=== PATIENT | female | born 1980 | race Caucasian/White ===

== ENCOUNTER 2017-09-13 09:03 | Inpatient (IN) | payer MEDICAID, OTHER ==
[2017-09-13] MEDS ORDERED: PEPCID IV NR (09:40)
[2017-09-13] MEDS ORDERED: BICITRA PO NR (09:40)
[2017-09-13] MEDS ORDERED: REGLAN IV NR (09:40)
[2017-09-13] MEDS ORDERED: LACTATED RINGERS 1,000 ML IV SCH ×2 (10:00→13:00)
[2017-09-13] MEDS ORDERED: PITOCin/NS 20 UNIT/1000ML DRIP 20 UNITS/1,000 ML BAG IV SCH ×3 (10:00→14:00)
[2017-09-13] MEDS ORDERED: ANCEF/STERILE WATER 2 GM/20 ML 2 GM/20 ML SYRINGE IV NR (10:00)
[2017-09-13 10:25] LABS: Basophils # (Auto) 0.1 K/mm3 (0.0-0.1); Basophils % (Auto) 0.6 % (0.0-1.8); Eosinophils # (Auto) 0.1 K/mm3 (0.0-0.4); Eosinophils % (Auto) 1.1 % (0.0-4.3); Hematocrit 37.7 % (30.3-42.9); Hemoglobin 12.5 gm/dl (10.1-14.3); Lymphocytes # (Auto) 1.3 K/mm3 (1.2-5.4); Lymphocytes % (Auto) 15.4 % (13.4-35.0); Mean Corpuscular HGB Conc 33 % (30-34); Mean Corpuscular Hemoglobin 27 pg (28-32); Mean Corpuscular Volume 81 fl (79-97); Monocytes # (Auto) 0.7 K/mm3 (0.0-0.8); Monocytes % (Auto) 8.1 % (0.0-7.3); Platelet Count 327 K/mm3 (140-440); Red Blood Count 4.65 M/mm3 (3.65-5.03); Red Cell Distribution Width 15.9 % (13.2-15.2)
[2017-09-13] MEDS ORDERED: HEMABATE IM ONE (11:34)
[2017-09-13] MEDS ORDERED: METHERGINE IM ONE (11:34)
[2017-09-13] MEDS ORDERED: PHENERGAN PR PRN (11:38)
[2017-09-13] MEDS ORDERED: DILAUDID IV PRN (11:38)
[2017-09-13] MEDS ORDERED: ZOFRAN IV PRN ×2 (11:38→13:34)
[2017-09-13] MEDS ORDERED: PHENERGAN PO PRN (11:38)
[2017-09-13] MEDS ORDERED: NARCAN 0.4 MG/1 ML IV PRN ×2 (11:38→13:34)
--- NOTE | 2017-09-13 11:38 | Anesthesia Consultation ---
Anesthesia Consult and Med Hx Date of service: 09/13/17 - Airway Anesthetic Teeth Evaluation: Good ROM Head & Neck: Adequate Mental/Hyoid Distance: Adequate Mallampati Class: Class II Intubation Access Assessment: Probably Good - Pre-Operative Health Status ASA Pre-Surgery Classification: ASA2 Proposed Anesthetic Plan: Epidural, Spinal - Pulmonary Hx Smoking: No Hx Asthma: No COPD: No Hx Pneumonia: No - Cardiovascular System Hx Hypertension: No - Central Nervous System Hx Seizures: No Hx Psychiatric Problems: No - Endocrine Hx Renal Disease: No Hx End Stage Renal Disease: No Hx Hypothyroidism: No Hx Hyperthyroidism: No - Hematic Hx Anemia: No Hx Sickle Cell Disease: No - Other Systems Hx Alcohol Use: No
--- NOTE | 2017-09-13 11:38 | Anesthesia Day of Surgery ---
Anesthesia Day of Surgery - Day of Surgery Patient Examined: Yes Patient H&P Reviewed: Yes Patient is NPO: Yes
[2017-09-13] MEDS ORDERED: SODIUM CHLORIDE FLUSH SYRINGE 10 ML IV NR ×2 (12:00→14:00)
[2017-09-13] MEDS ORDERED: BICITRA PO ONE (12:08)
[2017-09-13] MEDS ORDERED: PEPCID IV ONE (12:08)
[2017-09-13] MEDS ORDERED: REGLAN IV ONE (12:08)
--- NOTE | 2017-09-13 12:16 | History and Physical Report ---
History of Present Illness Date of examination: 09/13/17 Date of admission: 09/13/17 09:03 Chief complaint: SIUP at 39 weeks and 3 days not in labor. For repeat C/section. History of present illness: Patient is a 37 year old , LMP 12/07/16, EDC 09/17/17 at 39 weeks and 3 days who is admitted for elective repeat C/section. She is having mild contractions, but denies any fluid leakage or bleeding. She reports good movement. 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: abnormal PAP smear Family/Genetic History: none Social history: no significant social history - Obstetrical History Expected Date of Delivery: 09/17/17 Actual Gestation: 39 Week(s) 3 Day(s) : 4 Para: 2 Spontaneous Abortions: 1 Number of Living Children: 2 Medications and Allergies Allergies Allergy/AdvReac Type Severity Reaction Status Date / Time No Known Allergies Allergy Verified 03/15/14 11:32 Home Medications Medication Instructions Recorded Confirmed Last Taken Type HYDROcodone/ACETAMINOPHEN 1 each PO Q6H PRN #10 tablet 03/15/14 Unknown Rx [Hydrocodon-Acetaminophen 5-325] Ibuprofen [Motrin 800 MG tab] 800 mg PO TID PRN #60 tablet 03/15/14 Unknown Rx Active Meds: Active Medications Citric Acid/Sodium Citrate (Bicitra) 30 ml PO ONCE ONE Stop: 09/13/17 12:09 Famotidine (Pepcid) 20 mg IV ONCE ONE Stop: 09/13/17 12:09 Hydromorphone HCl (Dilaudid) 0.5 mg IV Q4H PRN PRN Reason: breakthrough pain > 7/10 Lactated Ringer's (Lactated Ringers) 1,000 mls @ 2,250 mls/hr IV PREOP REN Stop: 09/14/17 10:27 Oxytocin/Sodium Chloride (Pitocin/Ns 20 Unit/1000ml Drip) 20 units in 1,000 mls @ 0 mls/hr IV TITR REN Lactated Ringer's (Lactated Ringers) 1,000 mls @ 2,250 mls/hr IV PREOP REN Stop: 09/14/17 13:27 Oxytocin/Sodium Chloride (Pitocin/Ns 20 Unit/1000ml Drip) 20 units in 1,000 mls @ 0 mls/hr IV TITR REN Ketorolac Tromethamine (Toradol) 30 mg IV Q6H PRN PRN Reason: Pain, Moderate (4-6) Stop: 09/18/17 11:38 Metoclopramide HCl (Reglan) 10 mg IV ONCE ONE Stop: 09/13/17 12:09 Naloxone HCl (Narcan 0.4 Mg/1 Ml) 0.2 mg IV Q2MIN PRN PRN Reason: Res Rate </= 8 or 02 SAT < 92% Ondansetron HCl (Zofran) 4 mg IV Q8H PRN PRN Reason: Nausea And Vomiting Promethazine HCl (Phenergan) 25 mg PO Q6H PRN PRN Reason: Nausea And Vomiting Promethazine HCl (Phenergan) 25 mg WV Q6H PRN PRN Reason: Nausea And Vomiting Sodium Chloride (Sodium Chloride Flush Syringe 10 Ml) 10 ml IV PRN NR Stop: 09/13/17 23:59 - Physical Exam Cardiovascular: Normal S1, Normal S2 Lungs: Positive: Clear to auscultation Vulva: both: normal Uterus: Positive: enlarged Adnexa: both: normal Deep Tendon Reflex Grade: Normal +2 - Obstetrical FHR: category 1 Uterine Contraction Monitor Mode: External Cervical Dilatation: 1 Cervical Effacement Percentage: 50 station: -3 Uterine Contraction Pattern: Irregular Uterine Contraction Intensity: Mild Results Result Diagrams: 09/13/17 09:30 Abnormal lab results 09/13/17 Range/Units 09:30 MCH 27 L (28-32) pg RDW 15.9 H (13.2-15.2) % Pershing % (Auto) 8.1 H (0.0-7.3) % Seg Neutrophils % 74.8 H (40.0-70.0) % All other labs normal. Assessment and Plan - Patient Problems (1) 39 weeks gestation of Current Visit: Yes Status: Acute Plan to address problem: Admit to labor floor. Routine admitting labs. IV fluid. Pt is for repeat C/section. Risks, benefits of the procedure were discussed in detail with the patient which included but not limited to the risks of infection , hemorrhage requiring blood transfusion, injury to the bowel, bladder and blood vessels. She expressed understanding, her questions werev answered, she gave her informed consent. (2) Previous section Current Visit: Yes Status: Acute (3) Advanced maternal age in Current Visit: Yes Status: Acute
[2017-09-13] MEDS ORDERED: NACL 0.9% IR ONE (12:20)
[2017-09-13] MEDS ORDERED: WATER FOR IRRIG STERILE IR ONE (12:20)
[2017-09-13] MEDS ORDERED: ZOFRAN ONE (12:55)
[2017-09-13] MEDS ORDERED: NEO SYNEPHRINE/NS Syringe(OR USE) IV ONE (12:55)
[2017-09-13] MEDS ORDERED: ASTRAMORPH PF 10MG/10ML ONE (13:23)
[2017-09-13] MEDS ORDERED: NACL 0.9% 1000 ML 1,000 ML ONE (13:26)
[2017-09-13] MEDS ORDERED: SENOKOT PO PRN (13:34)
[2017-09-13] MEDS ORDERED: LANSINOH TP PRN (13:34)
[2017-09-13] MEDS ORDERED: MILK OF MAGNESIA PO PRN (13:34)
[2017-09-13] MEDS ORDERED: TUCKS PAD TP PRN (13:34)
[2017-09-13] MEDS ORDERED: MOTRIN PO PRN (13:34)
[2017-09-13] MEDS ORDERED: TORADOL IV PRN ×2 (13:34)
[2017-09-13] MEDS ORDERED: MYLICON PO PRN (13:34)
[2017-09-13] MEDS ORDERED: TYLENOL PO PRN (13:34)
[2017-09-13] MEDS ORDERED: MORPHINE IV PRN (13:34)
--- NOTE | 2017-09-13 13:58 | Operative Report ---
Operative Report Operative Report: Pre-operative diagnosis: 1. SIUP at 39 weeks and 3 days gestation not in labor. 2. Previous section. Postoperative diagnosis: 1. Same as preoperative diagnosis. 2. Dense adhesion of the peritoneum to the anterior fascia and bladder. Procedure: 1. Repeat low-transverse section. 2. Lysis of adhesions. Surgeon: Dr. Adams Tuber Helper: none Anesthesia: Epidural IVF: 2 liters of RL EBL: 800 cc Urine: 150 cc clear Complications: none Operative findings: 1. A female found in an ANASTASIA position, delivered at 12:44 PM, Apgars 8 at 1 minute and 9 at 5 minutes, weight 7 lbs. 6 oz. 2. Adhesions of the peritoneum to the anterior fascia and bladder. 3. Normal fallopian tubes and ovaries bilaterally. Procedure details: The risks, benefits, and alternatives of the procedure were discussed in detail with the patient which included but not limited to the risk of infection, hemorrhage requiring blood transfusion, injury to the bowel bladder and blood vessels. The patient expressed understanding, her questions were answered, and she gave informed consent. The patient was taken to the operating room with an IV fluids infusing Ringer's lactate. In the operating room, she was placed in a sitting position and given epidural anesthesia. Then, she was placed in the dorsal supine position with a leftward tilt. A Llanos catheter and Venodyne boots were placed. The abdomen was washed and she was prepared and draped in the usual sterile fashion. After confirming adequate epidural anesthesia, a Pfannenstiel skin incision was made in the lower abdomen and the level of the previous scar using the scalpel. This incision was carried down to the underlying fascia using the Bovie. The fascia was opened bilaterally in the curvilinear fashion using the Bovie. 2 straight Kocker clamps were used to grasp the upper edge of the fascia to dissect the underlying rectus abdominis muscle. A similar procedure was done with general edge of the fascia to dissect the underlying rectus abdominis muscle. The muscle was bluntly from the midline by pulling. The parietal peritoneum was grasped with 2 hemostat clamps and entered sharply using Metzenbaum seizures. A quick survey of the anatomy revealed dense adhesions of the peritoneum to the anterior fascia and the bladder. Lysis of adhesions was done. A bladder flap was created. Denys'O retractor was placed on the incision for proper visualization. A low transverse incision was made in the lower uterine segment using the scalpel and extended bilaterally in a curvilinear fashion using bandage scissors. The amniotic sac was ruptured, there was copious amount of clear amniotic fluid. The infant was found in an ANASTASIA position. The head was delivered atraumatically followed by the delivery of the shoulders and rest of the body at 12:44 PM. The was a female. The cord was clamped 2 and cut and the was handed off to the awaiting accounting manager controller. Apgars were 8 at 1 minute and 9 at 5 minutes and weight was 7 pounds and 6 ounces. Cord blood was collected. The placenta was delivered manually and it was complete with a three-vessel cord. The uterine cavity was cleaned of clots and debris using dry lap sponges. The uterine incision was repaired in a running locked fashion using 0 Vicryl sutures. A second layer of imbrication was placed. The gutters were cleaned of clots and debris using dry lap sponges. After confirming adequate hemostasis, the instruments were removed from the abdominal cavity. The fascia was closed in a running fashion using 0 Vicryl sutures. The skin was closed with shirley. Sterile dressing was placed The counts of laps, needles, sponges, and instruments were correct 2. The patient tolerated the procedure, she was taken to the recovery room in a stable condition.
[2017-09-13] MEDS: TORADOL IV PRN (14:36)
[2017-09-14 00:44] LABS: Hematocrit 34.1 % (30.3-42.9)
[2017-09-14] MEDS: TORADOL IV PRN (04:10)
[2017-09-14] MEDS: PERCOCET 5/325 PO PRN (04:13)
[2017-09-14] MEDS ORDERED: FEOSOL PO SCH (10:00)
--- NOTE | 2017-09-14 13:56 | Progress Note ---
Assessment and Plan - Patient Problems (1) S/P repeat low transverse Current Visit: Yes Status: Acute Plan to address problem: POD 2 - stable Continue routine postop orders Discharge to home 09/15/17 Subjective - Subjective Date of service: 09/14/17 Principal diagnosis: s/p repeat LTCS Patient reports: appetite normal, voiding normally, pain well controlled, ambulating normally, no dizzy ambulation, no flatus, no bowel movement : doing well, other (breast and bottle feeding) Objective - Vital Signs Latest vital signs: Vital Signs Temp Pulse Resp BP BP Pulse Ox 09/14/17 07:50 98.5 F 86 18 120/70 98 09/14/17 05:00 98.2 F 83 18 115/67 98 09/13/17 23:50 98.1 F 95 H 18 102/62 98 09/13/17 20:25 98.1 F 79 18 130/73 97 09/13/17 15:05 97.6 F 58 L 18 112/62 98 09/13/17 14:50 98.6 F 09/13/17 14:45 60 16 113/63 100 09/13/17 14:40 57 L 17 111/63 99 09/13/17 14:35 59 L 16 115/67 100 09/13/17 14:30 62 17 111/68 100 09/13/17 14:25 64 19 114/64 99 09/13/17 14:20 56 L 17 119/61 100 09/13/17 14:15 59 L 18 110/63 100 09/13/17 14:10 57 L 17 110/64 100 09/13/17 14:05 59 L 17 110/63 98 09/13/17 14:00 65 18 110/66 98 09/13/17 13:59 64 19 114/60 99 09/13/17 13:53 63 18 111/60 99 Intake and Output 09/13/17 09/14/17 09/14/17 23:59 07:59 15:59 Intake Total 600 360 Output Total 1200 400 Balance -600 -40 Intake: Oral 600 360 Output: Urine 1200 400 Indwelling Catheter 1200 400 Other: Total, Intake Amount 240 240 Total, Output Amount 700 400 - Exam Cardiovascular: Present: Regular rate, Normal S1, Normal S2, No murmurs Lungs: Present: Clear to auscultation, Normal air movement Abdomen: Present: normal appearance, soft Vulva: both: normal Uterus: Present: normal, firm, fundal height below umbilicus Extremities: Present: normal Deep Tendon Reflex Grade: Normal +2 Incision: Present: normal, dry, dressed
--- NOTE | 2017-09-14 14:01 | Discharge Summary ---
Providers - Providers Date of Admission: 09/13/17 09:03 Date of discharge: 09/15/17 Attending physician: JOHN ALEXANDER MD Primary care physician: JOHN ALEXANDER MD Hospitalization Reason for admission: section (scheduled ) Delivery: Procedure: repeat low transverse Episiotomy: none Laceration: none Incision: normal, dry, intact Other procedures: none complications: none Discharge diagnosis: IUP at term delivered [place] baby: female Hospital course: Uncomplicated Condition at discharge: Stable Disposition: DC-01 TO HOME OR SELFCARE - Discharge Diagnoses (1) S/P repeat low transverse Status: Acute Plan - Provider Discharge Summary Activity: routine, no sex for 6 weeks, no heavy lifting 4 weeks, no strenuous exercise Diet: routine Instructions: routine Additional instructions: [] Smoking cessation referral if applicable(refer to patient education folder for contact #) [] Refer to [facility]'s [facility] Booklet Call your doctor immediately for: * Fever > 100.5 * Heavy vaginal bleeding ( >1 pad per hour) * Severe persistent headache * Shortness of breath * Reddened, hot, painful area to leg or breast * Drainage or odor from incision. * Keep incision clean and dry at all times and follow doctor's instructions regarding bathing/showering - Follow up plan Follow up: JOHN ALEXANDER MD [Primary Care Provider] - 7 Days (Follow up at [facility] in 1 week for incision check and shirley removal)
[2017-09-15] MEDS: PERCOCET 5/325 PO PRN (04:33)
[2017-09-15 08:16] VITALS: BP 136/72
== END 2017-09-15 14:00 | disposition home or self-care (01) | DRG 766 ==
LOC: APU 09:03 → OB 15:06
PROVIDERS: ADMIT Obstetrics & Gynecology; ATTEND Obstetrics & Gynecology
PROC: 10D00Z1 Extraction of Products of Conception, Low, Open Approach (ICD-10-PCS; principal; 2017-09-13)
DX: O34.211 Maternal care for low transverse scar from previous cesarean delivery (principal); K66.0 Peritoneal adhesions (postprocedural) (postinfection); O99.62 Diseases of the digestive system complicating childbirth; Z3A.39 39 weeks gestation of pregnancy; Z37.0 Single live birth; Z79.899 Other long term (current) drug therapy
CPT/HCPCS: 36415; 85014; 85018; 85025; 86592; 86850; 86900; 86901; 88307; 99211; G0463; J0690; J1885; J2210; J2274; J2370; J2405; J2590; J2765; J7030; J7120

== ENCOUNTER 2017-09-19 11:45 | Emergency (ER) | payer SELFPAY ==
[2017-09-19] MEDS ORDERED: ASPIRIN PO ONE (12:00)
[2017-09-19 12:12] LABS: Hematocrit 40.7 % (30.3-42.9); Hemoglobin 13.3 gm/dl (10.1-14.3); Mean Corpuscular HGB Conc 33 % (30-34); Mean Corpuscular Hemoglobin 27 pg (28-32); Mean Corpuscular Volume 82 fl (79-97); Red Cell Distribution Width 17.1 % (13.2-15.2)
[2017-09-19 12:13] LABS: Basophils # (Auto) 0.1 K/mm3 (0.0-0.1); Basophils % (Auto) 0.8 % (0.0-1.8); Eosinophils # (Auto) 0.3 K/mm3 (0.0-0.4); Eosinophils % (Auto) 2.5 % (0.0-4.3); Lymphocytes # (Auto) 1.6 K/mm3 (1.2-5.4); Lymphocytes % (Auto) 14.1 % (13.4-35.0); Monocytes # (Auto) 0.8 K/mm3 (0.0-0.8); Monocytes % (Auto) 6.9 % (0.0-7.3); Platelet Count 504 K/mm3 (140-440)
[2017-09-19 12:24] LABS: BUN/Creatinine Ratio 18; Blood Urea Nitrogen 11 mg/dL (7-17); Hemolysis Index 3
--- NOTE | 2017-09-19 13:13 | Emergency Department Report ---
ED Chest Pain HPI - General Chief Complaint: Chest Pain Stated Complaint: CHEST PAIN Time Seen by Provider: 09/19/17 12:52 Source: patient Mode of arrival: Ambulatory Limitations: No Limitations - History of Present Illness Initial Comments: Patient is 37 years old female status post 7 days ago. Patient presented to the ER complaining of sudden onset of left-sided chest pain, sharp in nature associated with shortness of breath. Patient denied any cough or fever recently. MD Complaint: chest pain -: Sudden Onset: during rest Pain Location: left chest Severity: moderate Severity scale (0 -10): 5 Quality: sharp Consistency: constant - Related Data Previous Rx's Medication Instructions Recorded Last Taken Type HYDROcodone/ACETAMINOPHEN 1 each PO Q6H PRN #10 tablet 03/15/14 Unknown Rx [Hydrocodon-Acetaminophen 5-325] Ibuprofen [Motrin 800 MG tab] 800 mg PO TID PRN #60 tablet 03/15/14 Unknown Rx Allergies Allergy/AdvReac Type Severity Reaction Status Date / Time No Known Allergies Allergy Verified 03/15/14 11:32 Heart Score - HEART Score History: Slightly suspicious EKG: Normal Age: < 45 Risk factors: No known risk factors Troponin: < normal limit HEART Score: 0 - Critical Actions Critical Actions: 0-3 pts:0.9-1.7%risk of adverse cardiac event.Candidate for discharge ED Review of Systems ROS: Stated complaint: CHEST PAIN Other details as noted in HPI Comment: All other systems reviewed and negative Constitutional: denies: chills, fever Respiratory: shortness of breath, SOB at rest. denies: cough, wheezing Cardiovascular: chest pain. denies: palpitations, dyspnea on exertion Gastrointestinal: denies: abdominal pain, nausea, vomiting, diarrhea Neurological: denies: headache, weakness, numbness, paresthesias ED Past Medical Hx - Past Medical History Previous Medical History?: No Hx Hypertension: No Hx Congestive Heart Failure: No Hx Diabetes: No Hx Deep Vein Thrombosis: No Hx Renal Disease: No Hx Sickle Cell Disease: No Hx Seizures: No Hx Asthma: No Hx COPD: No Hx HIV: No - Surgical History Additional Surgical History: - Social History Smoking Status: Never Smoker Substance Use Type: None - Medications Home Medications: Home Medications Medication Instructions Recorded Confirmed Last Taken Type HYDROcodone/ACETAMINOPHEN 1 each PO Q6H PRN #10 tablet 03/15/14 09/14/17 Unknown Rx [Hydrocodon-Acetaminophen 5-325] Ibuprofen [Motrin 800 MG tab] 800 mg PO TID PRN #60 tablet 03/15/14 09/14/17 Unknown Rx ED Physical Exam - General Limitations: No Limitations General appearance: alert, anxious - Head Head exam: Present: atraumatic, normocephalic, normal inspection - Eye Eye exam: Present: normal appearance, PERRL - ENT ENT exam: Present: normal exam, normal orophraynx, mucous membranes moist - Neck Neck exam: Present: normal inspection, full ROM. Absent: tenderness, meningismus, lymphadenopathy, thyromegaly - Respiratory Respiratory exam: Present: normal lung sounds bilaterally, chest wall tenderness (left upper chest.). Absent: respiratory distress, wheezes, rales, rhonchi, stridor, accessory muscle use, decreased breath sounds, prolonged expiratory - Cardiovascular Cardiovascular Exam: Present: regular rate, normal rhythm, normal heart sounds - GI/Abdominal GI/Abdominal exam: Present: soft, normal bowel sounds. Absent: distended, tenderness, guarding, rebound, rigid, organomegaly, mass, bruit, pulsatile mass , hernia - Extremities Exam Extremities exam: Present: normal inspection, full ROM, normal capillary refill - Back Exam Back exam: Present: normal inspection, full ROM. Absent: tenderness, CVA tenderness (R), CVA tenderness (L), muscle spasm, paraspinal tenderness, vertebral tenderness - Neurological Exam Neurological exam: Present: alert, oriented X3, CN II-XII intact, normal gait - Skin Skin exam: Present: warm, intact, normal color. Absent: cyanosis, diaphoretic, erythema ED Course Vital Signs 09/19/17 11:57 Temperature 98.1 F Pulse Rate 72 Respiratory 20 Rate Blood Pressure 132/82 O2 Sat by Pulse 99 Oximetry ED Medical Decision Making - Lab Data Result diagrams: 09/19/17 12:01 09/19/17 12:01 - EKG Data -: EKG Interpreted by Sc EKG shows normal: sinus rhythm - EKG Data Interpretation: no acute changes - Radiology Data Radiology results: report reviewed Referring Physician: MC RIBEIRO Patient Name: SILVIO LOPEZ Date of : 1980 Sex: Female Report Date: 2017-09-19 Report Status: Finalized Findings [facility] [address] [place] [address] Cat Scan Report Signed Patient: SILVIO LOPEZ MR#: [id number] : 1980 Acct:[id number] Age/Sex: 37 / F ADM Date: 09/19/17 Loc: ED Attending Dr: Ordering Physician: MC RIBEIRO Date of Service: 09/19/17 Procedure(s): CT angio chest Accession Number(s): [id number] cc: MC RIBEIRO FINAL REPORT EXAM: CT ANGIO CHEST HISTORY: CHEST PAIN,SOB, S/P TECHNIQUE: Spiral CTA of the chest after the uneventful administration of IV contrast. Multiplanar reformations. 100 mL Omnipaque IV. PRIORS: None. FINDINGS: Chest: Respiratory motion artifact limits examination somewhat. The main and bilateral proximal pulmonary arteries are normally opacified without endoluminal filling defects. No apparent aneurysm, pseudoaneurysm or aortic dissection. Calcified lymph nodes suggesting old granulomatous change in the mediastinum and left hilum. No significant lymph node enlargement or axillary adenopathy. Lungs show probable mild dependent atelectasis in the left lung base. No discrete parenchymal mass, focal consolidation or pleural effusions. No apparent pneumothorax. Visualized upper abdomen grossly unremarkable. IMPRESSION: 1. No evidence of large vessel or central pulmonary emboli. No acute consolidation. Transcribed By: [facility] Dictated By: ELIZABETH CARPIO MD Electronically Authenticated By: ELIZABETH CARPIO MD Signed Date/Time: 09/19/171420 DD/ 20 TD/TT: 09/19/171420 Critical care attestation.: If time is entered above; I have spent that time in minutes in the direct care of this critically ill patient, excluding procedure time. ED Disposition Clinical Impression: Chest pain Disposition: DC-01 TO HOME OR SELFCARE Is pt being admited?: No Condition: Stable Instructions: Chest Pain (ED), Costochondritis (ED) Referrals: PRIMARY CARE, [Primary Care Provider] - 3-5 Days
[2017-09-19] MEDS ORDERED: NACL ONE (13:16)
[2017-09-19 13:26] LABS: INR 0.89 (0.87-1.13)
[2017-09-19 13:27] LABS: Partial Thromboplastin Time 34.9 Sec. (24.2-36.6)
[2017-09-19] MEDS ORDERED: ASPIRIN ONE (14:02)
--- NOTE | 2017-09-19 14:27 | Cat Scan Report ---
FINAL REPORT EXAM: CT ANGIO CHEST HISTORY: CHEST PAIN,SOB, S/P TECHNIQUE: Spiral CTA of the chest after the uneventful administration of IV contrast. Multiplanar reformations. 100 mL Omnipaque IV. PRIORS: None. FINDINGS: Chest: Respiratory motion artifact limits examination somewhat. The main and bilateral proximal pulmonary arteries are normally opacified without endoluminal filling defects. No apparent aneurysm, pseudoaneurysm or aortic dissection. Calcified lymph nodes suggesting old granulomatous change in the mediastinum and left hilum. No significant lymph node enlargement or axillary adenopathy. Lungs show probable mild dependent atelectasis in the left lung base. No discrete parenchymal mass, focal consolidation or pleural effusions. No apparent pneumothorax. Visualized upper abdomen grossly unremarkable. IMPRESSION: 1. No evidence of large vessel or central pulmonary emboli. No acute consolidation.
[2017-09-19] MEDS ORDERED: SUBLIMAZE IV ONE ×3 (14:51→15:15)
[2017-09-19] MEDS ORDERED: ZOFRAN IV ONE (14:51)
[2017-09-19] MEDS ORDERED: SUBLIMAZE ONE (15:01)
[2017-09-19 16:54] VITALS: BP 127/84
== END 2017-09-19 16:54 | disposition home or self-care (01) ==
LOC: ED 11:45
DX: R07.9 Chest pain, unspecified (principal)
CPT/HCPCS: 36415; 71275; 80048; 83880; 84484; 85025; 85379; 85610; 85730; 93005; 93010; 96374; 96375; 99284; J2405; J3010; Q9967